=== PATIENT | male | born 1950 | race Caucasian/White ===

== ENCOUNTER → 2016-08-14 | Outpatient (CLI) | payer OTHER ==
[~2016-08-14] MED LIST: AMOXICILLIN875 MG PO; AVENTYL,PAMELOR25 MG PO; FLEXERIL10 MG PO; GRALISE300 MG PO; KEFLEX500 MG PO; METFORMIN HCL500 MG PO; MOTRIN600 MG PO; MOTRIN800 MG PO; OXAYDO5 MG PO; OXYCODONE HCL5 MG PO; PRILOSEC20 MG PO; SIMVASTATIN10 MG PO; SKELAXIN800 MG PO; TRAMADOL HCL50 MG PO; TYLENOL EXTRA500 MG PO; ZESTRIL,PRINIVI20 MG PO
== END | disposition home or self-care (01) ==
LOC: RAD 08:20
DX: R10.9 Unspecified abdominal pain (principal)
CPT/HCPCS: 74000

== ENCOUNTER 2017-02-27 14:24 | Emergency (ER) | payer OTHER ==
[~2017-02-27] VITALS: Ht 180.3 cm; Wt 87.3 kg
[2017-02-27 15:16] LABS: HEMATOCRIT 43.2 % (38.0-50.0); MCH 31.4 PG (29.0-34.0); MCHC 34.3 G/DL (30.0-36.0); MCV 91.7 FL (86-99); MEAN PLAT.VOLUME 10.2 uM^3 (9.0-12.4); PLATELET COUNT 239 K/uL (156-360); RBC DIS.WIDTH-CV 13.1 % (11.8-14.6); RBC DIS.WIDTH-SD 44.2 % (39-53); RED BLOOD COUNT 4.71 M/uL (4.00-5.50); WHITE BLOOD COUNT 12.7 K/uL (4.1-10.2)
[2017-02-27 15:30] LABS: CHLORIDE 106 mEq/L (99-109); POTASSIUM 3.7 mEq/L (3.7-5.4); SODIUM 138 mEq/L (136-147)
[2017-02-27 15:32] LABS: GLUCOSE 228 mg/dL (70-99)
[2017-02-27 15:33] LABS: ANION GAP 15 MEQ/L (2-14)
[2017-02-27 15:35] LABS: GFR ESTIMATE (CALCULATED) 59 mL/min/
[2017-02-27 15:36] LABS: UREA NITROGEN (BUN) 11 mg/dL (9-23)
[2017-02-27 20:23] VITALS: BP 126/75
== END 2017-02-27 20:22 | disposition home or self-care (01) ==
LOC: EME 14:24
PROVIDERS: Emergency Medicine
PROC: 0HQDXZZ Repair Right Lower Arm Skin, External Approach (ICD-10-PCS; principal; 2017-02-27)
DX: S51.811A Laceration without foreign body of right forearm, initial encounter (principal); W01.0XXA Fall on same level from slipping, tripping and stumbling without subsequent striking against object, initial encounter; R07.81 Pleurodynia; E11.9 Type 2 diabetes mellitus without complications; I10 Essential (primary) hypertension; Z87.11 Personal history of peptic ulcer disease; Z90.49 Acquired absence of other specified parts of digestive tract; F17.200 Nicotine dependence, unspecified, uncomplicated; Z79.84 Long term (current) use of oral hypoglycemic drugs
CPT/HCPCS: 73206; 80048; 85027; 99281; 99285; J7030